=== PATIENT | male | born 2000 | race Caucasian/White ===

== ENCOUNTER 2020-11-03 20:30 | Emergency (ER) | payer OTHER ==
[~2020-11-03 20:30] MED LIST: HYDROCODONE-APA1 TAB PO; KETOROLAC TROME10 MG PO; ONDANSETRON ODT4 MG PO; ZOFRAN8 MG MT
[2020-11-04] MEDS ORDERED: IBUPROFEN800 MG PO (00:26)
== END 2020-11-04 00:50 | disposition home or self-care (01) ==
LOC: FER 20:30
DX: S62.314A Displaced fracture of base of fourth metacarpal bone, right hand, initial encounter for closed fracture (principal); S63.064A Dislocation of metacarpal (bone), proximal end of right hand, initial encounter; W22.8XXA Striking against or struck by other objects, initial encounter; Y92.009 Unspecified place in unspecified non-institutional (private) residence as the place of occurrence of the external cause
CPT/HCPCS: 73120; 73130; 94760; 96374; J1170

== ENCOUNTER 2021-02-08 15:17 | Emergency (ER) | payer OTHER ==
[~2021-02-08 15:17] MED LIST changes: +IBUPROFEN800 MG PO
[2021-02-08] MEDS ORDERED: KEFLEX250 MG PO (20:26)
== END 2021-02-08 20:50 | disposition home or self-care (01) ==
LOC: FER 15:17
DX: S81.812A Laceration without foreign body, left lower leg, initial encounter (principal); F17.290 Nicotine dependence, other tobacco product, uncomplicated; W29.3XXA Contact with powered garden and outdoor hand tools and machinery, initial encounter; Y93.H2 Activity, gardening and landscaping; Y92.89 Other specified places as the place of occurrence of the external cause; Y99.0 Civilian activity done for income or pay
CPT/HCPCS: 73590

== ENCOUNTER 2021-12-02 11:58 | Emergency (ER) | payer OTHER ==
[~2021-12-02 11:58] MED LIST changes: +KEFLEX250 MG PO
== END 2021-12-02 13:07 | disposition home or self-care (01) ==
LOC: FER 11:58
DX: S01.01XA Laceration without foreign body of scalp, initial encounter (principal); Z28.310 Unvaccinated for COVID-19; W22.8XXA Striking against or struck by other objects, initial encounter; Y93.89 Activity, other specified; Y92.89 Other specified places as the place of occurrence of the external cause; Y99.0 Civilian activity done for income or pay